=== PATIENT | female | born 1940 | race Caucasian/White ===

== ENCOUNTER → 2017-01-27 | Outpatient (CLI) | payer OTHER | LOC: BC 11:09 | DX: Z12.31 Encounter for screening mammogram for malignant neoplasm of breast (principal) ==

== ENCOUNTER → 2019-02-25 | Outpatient (CLI) | payer OTHER | LOC: RAD 00:41 | DX: Z12.31 Encounter for screening mammogram for malignant neoplasm of breast (principal) ==

== ENCOUNTER → 2020-04-11 | Outpatient (CLI) | payer OTHER | LOC: BC 10:20 | PROVIDERS: ATTEND Internal Medicine | DX: Z12.31 Encounter for screening mammogram for malignant neoplasm of breast (principal) ==

== ENCOUNTER → 2020-04-20 | Outpatient (CLI) | payer OTHER | LOC: ULTRA 10:21 | PROVIDERS: ATTEND Internal Medicine | DX: N63.10 Unspecified lump in the right breast, unspecified quadrant (principal) ==

== ENCOUNTER → 2021-05-01 | Outpatient (CLI) | payer OTHER | LOC: BC 13:28 | PROVIDERS: ATTEND Internal Medicine | DX: Z12.31 Encounter for screening mammogram for malignant neoplasm of breast (principal); N64.89 Other specified disorders of breast ==